=== PATIENT | female | born 1940 | race Caucasian/White ===

== ENCOUNTER → 2024-05-28 | Outpatient (CLI) | payer OTHER, SELFPAY ==
--- NOTE | 2024-05-28 12:12 | XR_ITS ---
Examination: Abdomen sonogram, complete Date and time of exam: May 28, 2024 1217 hours INDICATIONS: Patient fell May 23, 2024 with injury to the abdomen, with flank pain. Technique: Multiple real-time grayscale transabdominal sonographic images of the abdomen have been obtained. Findings: Absent gallbladder Normal common bile duct 0.5 cm Pancreatic head 2.6 cm Aorta not enlarged Liver 15.7 cm fatty infiltration 4.3 cm cyst with septations in the left lower lobe Normal hepatopedal portal venous oh Patent IVC Right kidney 10.7 cm renal cortex 1.2 cm 14 mm cyst upper pole Left kidney 11.0 cm renal cortex 1.8 cm moderate renal parenchymal scar formation Spleen 11.3 cm IMPRESSION: Recommend CT scan abdomen pre and post contrast follow-up to assess irregular cyst with septations in the left lower liver lobe, 3.9 x 3.7 x 4.3 cm
--- NOTE | 2024-05-28 12:46 | XR_ITS ---
Examination: AP pelvis single view TECHNIQUE: AP portable supine pelvis single view Exam date and time: 29/03/1999 2513.9 hours INDICATIONS: Patient fell 5 days ago with into the pelvis, pelvic pain. FINDINGS: Old appearing fracture right superior inferior pubic rami Mild to moderate narrowing hip joints No hip fractures or dislocations IMPRESSION: No acute hip or pelvic fracture If pain persists, consider CT scan pelvis without contrast follow-up
--- NOTE | 2024-05-28 12:46 | XR_ITS ---
Examination: Ribs, left, with PA chest, 4 views Technique: Chest PA, RIBS AP, RPO, LPO, 4 views Exam date and time: May 28, 2024 1349 hours INDICATIONS: Patient fell 5 days ago with injury to left ribs, left rib pain Findings: Normal heart size Cardiac leads satisfactory position No pneumothorax No acute rib fractures IMPRESSION: No pneumothorax pulmonary contusion or hemothorax No acute rib fractures
== END | disposition home or self-care (01) ==
PROVIDERS: PCP Family Medicine; Referring Provider Registered Nurse; Visit Provider Registered Nurse
DX: K76.89 Other specified diseases of liver (principal); S29.9XXA Unspecified injury of thorax, initial encounter; S39.93XA Unspecified injury of pelvis, initial encounter; W19.XXXA Unspecified fall, initial encounter
CPT/HCPCS: 71101; 72190; 76700

== ENCOUNTER → 2024-06-24 | Outpatient (CLI) | payer OTHER, SELFPAY ==
[2024-06-24 11:26] LABS: Basophils % (Auto) 1 % (0-2.5); Eosinophils # (Auto) 0.1 Thou/mm3 (0.0-0.5); Eosinophils % (Auto) 2 % (0-10); Hematocrit 43.2 % (36.0-46.0); Hemoglobin 14.1 g/dL (12.0-16.0); Immature Granulocytes % (Auto) 1 % (0-0); Immature Granulocytes Auto 0.03 Thou/mm3 (0.00-0.00); Lymphocytes # (Auto) 1.5 Thou/mm3 (1.0-4.8); Lymphocytes % (Auto) 23 % (10-50); Mean Corpuscular HGB Conc 32.6 g/dl (31.0-37.0); Mean Corpuscular Hemoglobin 31.5 pg (25.0-35.0); Mean Corpuscular Volume 96 fL (80-100); Monocytes # (Auto) 0.5 Thou/mm3 (0.0-0.8); Monocytes % (Auto) 7 % (0-12); Neutrophils # (Auto) 4.4 Thou/mm3 (1.8-7.7); Neutrophils % (Auto) 67 % (37-80); Nucleated Red Blood Cell % 0 /100 WBC (0); Platelet Count 254 Thou/mm3 (140-440); RDW Standard Deviation 50.2 fL (36.4-46.3); Red Blood Count 4.48 Miln/mm3 (4.00-5.20); White Blood Count 6.6 Thou/mm3 (3.6-11.0)
[2024-06-24 11:38] LABS: Glucose Estimated Average 126 mg/dL (80-131)
[2024-06-24 11:42] LABS: Collection Type, Urine Clean Catch
[2024-06-24 11:44] LABS: Alanine Aminotransferase 14 U/L (10-49); Albumin, Serum 4.4 gm/dL (3.4-4.8); Albumin/Globulin Ratio 1.8 (1.2-2.2); Alkaline Phosphatase 93 U/L (46-116); Anion Gap 7 (7-16); Aspartate Amino Transferase 18 U/L (0-34); BUN/Creatinine Ratio 20 Ratio (12-20); Bilirubin,Total 0.6 mg/dL (0.3-1.2); Blood Urea Nitrogen 16 mg/dL (9-23); Calcium 9.5 mg/dL (8.3-10.6); Calcium (Corrected) 9.5 mg/dL (8.5-10.1); Carbon Dioxide 28.6 mMol/L (20.0-31.0); Cardiac Risk Estimate 3.3 RATIO (3.7-5.6); Chloride 105 mMol/L (98-107); Cholesterol 231 mg/dL (132-200); Creatinine (Component) 0.8 mg/dL (0.6-1.3); Globulin 2.5 gm/dL (2.3-3.5); Glucose 128 mg/dL (74-106); HDL Cholesterol 69 mg/dL (40-60); LDL Cholesterol,Calculated 129 mg/dL (0-130); Osmolality,Calculated 284 (275-295); Sodium 141 mMol/L (136-145); Thyroid Stimulating Hormone 1.39 uIU/mL (0.55-4.78); Total Protein 6.9 gm/dL (5.7-8.2); Triglycerides 165 mg/dL (30-150); eGFR > 60 See Note
[2024-06-24 11:57] LABS: Vitamin D 25 Hydroxy Total 18.9 ng/mL (7.3-40.2)
[2024-06-24 12:29] LABS: Bilirubin,Urine Negative (Negative); Blood,Urine Trace (Negative); Clarity,Urine Clear (Clear/Hazy); Color,Urine Lt-Yellow (Lt Yel-Yel); Culture Indicated,Urine Not Indicated; Glucose, Urine Negative (Negative); Ketones,Urine Negative (Negative); Leukocyte Esterase,Urine Negative (Negative); Nitrite,Urine Negative (Negative); PH,Urine 5.5 (5.0-7.0); Protein,Urine Negative (Neg - Trace); RBC,Urine 1 /hpf (0-3); Squamous Epithelial Cell,Urine 1 /hpf (0-5); Urobilinogen,Urine Negative mg/dL (0.0-1.0); WBC,Urine 2 /hpf (0-5)
== END | disposition home or self-care (01) ==
LOC: COPL 10:29
PROVIDERS: PCP Family Medicine; Referring Provider Registered Nurse; Visit Provider Registered Nurse
DX: Z00.00 Encounter for general adult medical examination without abnormal findings (principal)
CPT/HCPCS: 36415; 80053; 80061; 81001; 82306; 83036; 84443; 85025

== ENCOUNTER → 2025-01-31 | Outpatient (CLI) | payer OTHER, SELFPAY ==
[2025-01-31 17:44] LABS: Basophils # (Auto) 0.0 Thou/mm3 (0.0-0.2); Basophils % (Auto) 0 % (0-2.5); Eosinophils # (Auto) 0.1 Thou/mm3 (0.0-0.5); Eosinophils % (Auto) 2 % (0-10); Hematocrit 38.5 % (36.0-46.0); Hemoglobin 12.7 g/dL (12.0-16.0); Immature Granulocytes Auto 0.02 Thou/mm3 (0.00-0.00); Lymphocytes # (Auto) 2.1 Thou/mm3 (1.0-4.8); Lymphocytes % (Auto) 31 % (10-50); Mean Corpuscular HGB Conc 33.0 g/dl (31.0-37.0); Mean Corpuscular Hemoglobin 31.9 pg (25.0-35.0); Mean Corpuscular Volume 97 fL (80-100); Monocytes # (Auto) 0.5 Thou/mm3 (0.0-0.8); Monocytes % (Auto) 8 % (0-12); Neutrophils # (Auto) 3.9 Thou/mm3 (1.8-7.7); Neutrophils % (Auto) 58 % (37-80); Nucleated Red Blood Cell # 0.00 Thou/mm3 (0.00-0.00); Nucleated Red Blood Cell % 0 /100 WBC (0); Platelet Count 234 Thou/mm3 (140-440); RDW Standard Deviation 49.6 fL (36.4-46.3); Red Blood Count 3.98 Miln/mm3 (4.00-5.20); White Blood Count 6.7 Thou/mm3 (3.6-11.0)
[2025-01-31 18:01] LABS: Alanine Aminotransferase 17 U/L (10-49); Albumin, Serum 4.5 gm/dL (3.4-4.8); Albumin/Globulin Ratio 2.0 (1.2-2.2); Alkaline Phosphatase 93 U/L (46-116); Anion Gap 9 (7-16); Aspartate Amino Transferase 21 U/L (0-34); BUN/Creatinine Ratio 25 Ratio (12-20); Bilirubin,Total 0.4 mg/dL (0.3-1.2); Blood Urea Nitrogen 15 mg/dL (9-23); Calcium 9.8 mg/dL (8.3-10.6); Calcium (Corrected) 9.8 mg/dL (8.5-10.1); Carbon Dioxide 31.3 mMol/L (20.0-31.0); Chloride 104 mMol/L (98-107); Creatinine (Component) 0.6 mg/dL (0.6-1.3); Globulin 2.2 gm/dL (2.3-3.5); Glucose 78 mg/dL (74-106); Osmolality,Calculated 286 (275-295); Potassium 3.8 mMol/L (3.4-5.1); Sodium 144 mMol/L (136-145); Total Protein 6.7 gm/dL (5.7-8.2); eGFR > 60 See Note
[2025-01-31 21:03] LABS: Glucose Estimated Average 128 mg/dL (80-131); Hemoglobin A1C 6.1 % Hgb (4.8-6.0)
[2025-02-01 08:40] LABS: Vitamin B12 379 pg/mL (211-911); Vitamin D 25 Hydroxy Total 23.2 ng/mL (7.3-40.2)
== END | disposition home or self-care (01) ==
LOC: COPL 16:27
PROVIDERS: PCP Family Medicine; Referring Provider Psychiatry & Neurology Neurology; Visit Provider Psychiatry & Neurology Neurology
DX: R41.3 Other amnesia (principal); D51.9 Vitamin B12 deficiency anemia, unspecified; E55.9 Vitamin D deficiency, unspecified
CPT/HCPCS: 36415; 80053; 82306; 82607; 83036; 85025

== ENCOUNTER → 2025-02-07 | Outpatient (CLI) | payer OTHER, SELFPAY ==
--- NOTE | 2025-02-07 15:42 | XR_ITS ---
EXAMINATION: Lumbar spine 3 views TECHNIQUE: AP lateral, lateral lower lumbar spine 3 views Date and time: February 07, 2025, 1559 hours, comparison January 14, 2024 INDICATIONS: Low back pain several years. FINDINGS: Thoracolumbar dextroscoliosis 12 degrees No acute lumbar fracture Advanced diffuse lumbar degenerative disc disease Grade 1 anterolisthesis L4 on L5 Prominent lumbar spondylosis Suspicious for calcified abdominal aortic aneurysm L3 level AP dimension 3.5 cm IMPRESSION: Advanced diffuse lumbar degenerative disc disease Recommend abdominal aortic ultrasound to exclude aneurysmal dilatation abdominal aorta
--- NOTE | 2025-02-07 15:42 | XR_ITS ---
EXAMINATION: Thoracic spine 3 views TECHNIQUE: AP lateral coned lateral upper dorsal spine 3 views Date and time: February 07, 2025, 1559 hours, comparison January 14, 2024 INDICATIONS: Upper back pain several years. FINDINGS: Significant osteopenia Mild kyphosis dorsal spine secondary to chronic mild wedging of upper dorsal vertebral bodies No acute thoracic fracture Moderate diffuse thoracic disc narrowing Mild thoracic spondylosis IMPRESSION: Moderate diffuse thoracic degenerative disc disease
== END | disposition home or self-care (01) ==
LOC: CDIM 15:35
PROVIDERS: PCP Family Medicine; Referring Provider Registered Nurse; Visit Provider Registered Nurse
DX: M51.34 Other intervertebral disc degeneration, thoracic region (principal); M51.360 Other intervertebral disc degeneration, lumbar region with discogenic back pain only
CPT/HCPCS: 72070; 72100